=== PATIENT | female | born 1985 | race Caucasian/White ===

== ENCOUNTER 2017-07-25 04:57 | Emergency (ER) | payer OTHER ==
[2017-07-25 05:52] VITALS: BP 137/78; PULSE 97; TEMP 98.1; BMI 50.2
--- NOTE | 2017-07-25 06:08 | PDOC ---
History of Present Illness - General History Source: Patient Exam Limitations: No Limitations - History of Present Illness Initial Comments: 07/25/17 06:22 The patient is a 31 year old female with a significant PMH of depression and anxiety who presents to the emergency department with 2 days of cough and 1 day of chest pain. The patient describes her cough as productive of green sputum. After becoming concerned for her cough, the patient reports visiting an Urgent Care and being treated with Prednisone in nebulizer form, and was prescribed Albuterol and an unnamed steroid. The patient reports taking the steroid 2 hours after receiving nebulizer treatment at the Urgent Care center, and reports developing shortness of breath and chest pain shortly after. She describes the chest pain as pressure like heaviness behind the sternal area, with no radiation. She now reports a slight headache with her cough. The patient is currently not on any medications for her anxiety or depression. The patient reports being prescribed Azithromycin and beginning her course yesterday. The patient denies dizziness. Denies fever, chills, nausea, vomit, diarrhea and constipation. Denies dysuria, frequency, urgency and hematuria Allergies: Levofloxacin. Penicillins. Past surgical history: None reported. Social history: Current everyday smoker. No reported alcohol or drug use. PCP: Not on Staff. <Sarkis Cole - Last Filed: 07/25/17 06:23> - General History Source: Patient <SamuelEthan valiente - Last Filed: 07/29/17 20:07> - General Chief Complaint: Chest Pain Stated Complaint: CHEST PAIN Time Seen by Provider: 07/25/17 05:37 Past History <Sarkis Cole - Last Filed: 07/25/17 06:23> - Past Medical History Asthma: Yes Thyroid Disease: (HERNIATED DISCS) - Reproductive History (#): 1 Para: 1 - Immunization History Immunization Up to Date: Yes - Suicide/Smoking/Psychosocial Hx Smoking Status: Yes Smoking History: Current every day smoker Have you smoked in the past 12 months: Yes Number of Cigarettes Smoked Daily: 7 Cigars Per Day: 0 Information on smoking cessation initiated: No 'Breaking Loose' booklet given: 10/03/13 Hx Alcohol Use: No Drug/Substance Use Hx: No Substance Use Type: None <Ethan Treviño - Last Filed: 07/29/17 20:07> - Past Medical History Allergies/Adverse Reactions: Allergies Allergy/AdvReac Type Severity Reaction Status Date / Time levofloxacin [From Levaquin] Allergy Verified 02/14/15 04:58 Penicillins Allergy Verified 07/25/17 05:52 shellfish derived Allergy Verified 02/14/15 04:58 Home Medications: Ambulatory Orders NK [No Known Home Medication] 07/25/17 Review of Systems - Review of Systems Able to Perform ROS?: Yes Comments:: 07/25/17 06:22 CONSTITUTIONAL: Absent: fever, chills, diaphoresis, generalized weakness, malaise, loss of appetite HEENT: Absent: rhinorrhea, nasal congestion, throat pain, throat swelling, difficulty swallowing, mouth swelling, ear pain, eye pain, visual Changes CARDIOVASCULAR: (+) Sternal chest pain. Absent: syncope, palpitations, irregular heart rate, lightheadedness, peripheral edema RESPIRATORY: (+) Shortness of breath. (+) Productive cough (green sputum). Absent: dyspnea with exertion, orthopnea, wheezing, stridor, hemoptysis GASTROINTESTINAL: Absent: abdominal pain, abdominal distension, nausea, vomiting, diarrhea, constipation, melena, hematochezia GENITOURINARY: Absent: dysuria, frequency, urgency, hesitancy, hematuria, flank pain, genital pain MUSCULOSKELETAL: Absent: myalgia, arthralgia, joint swelling SKIN: Absent: rash, itching, pallor HEMATOLOGIC/IMMUNOLOGIC: Absent: easy bleeding, easy bruising, lymphadenopathy, frequent infections ENDOCRINE: Absent: unexplained weight gain, unexplained weight loss, heat intolerance, cold intolerance NEUROLOGIC: (+) Headache Absent: focal weakness or paresthesias, dizziness, unsteady gait, seizure, mental status changes, bladder or bowel incontinence PSYCHIATRIC: Absent: anxiety, depression, suicidal or homicidal ideation, hallucinations. <Sarkis Cole - Last Filed: 07/25/17 06:23> *Physical Exam - Vital Signs Last Vital Signs Temp Pulse Resp BP Pulse Ox 98.1 F 97 H 20 137/78 96 07/25/17 05:44 07/25/17 05:44 07/25/17 05:44 07/25/17 05:44 07/25/17 05:44 - Physical Exam Comments: 07/25/17 06:23 GENERAL: Well developed, well nourished. Awake and alert. No acute distress. HEENT: Normocephalic, atraumatic. PERRLA, EOMI. No conjunctival pallor. Sclera are non- icteric. Moist mucous membranes. Oropharynx is clear. NECK: Supple. Full ROM. No JVD. Carotid pulses 2+ and symmetric, without bruits. No thyromegaly. No lymphadenopathy. CARDIOVASCULAR: Regular rate and rhythm. No murmurs, rubs, or gallops. Distal pulses are 2+ and symmetric. PULMONARY: (+) Coarse bilateral wheezing. No evidence of respiratory distress. No rales or rhonchi. ABDOMINAL: Soft. Non-tender. Non-distended. No rebound or guarding. No organomegaly. Normoactive bowel sounds. MUSCULOSKELETAL Normal range of motion at all joints. No bony deformities or tenderness. No CVA tenderness. EXTREMITIES: No cyanosis. No clubbing. No edema. No calf tenderness. SKIN: Warm and dry. Normal capillary refill. No rashes. No jaundice. NEUROLOGICAL: Alert, awake, appropriate. Cranial nerves 2-12 intact. No deficits to light touch and temperature in face, upper extremities and lower extremities. No motor deficits in the in face, upper extremities and lower extremities. Normoreflexic in the upper and lower extremities. Normal speech. Toes are downgoing bilaterally. Gait is normal without ataxia. PSYCHIATRIC: Cooperative. Good eye contact. Appropriate mood and affect. <Sarkis Cole - Last Filed: 07/25/17 06:23> - Vital Signs Last Vital Signs Temp Pulse Resp BP Pulse Ox 98.1 F 97 H 20 137/78 96 07/25/17 05:44 07/25/17 05:44 07/25/17 05:44 07/25/17 05:44 07/25/17 05:44 <Ethan Treviño - Last Filed: 07/29/17 20:07> Heart Score/ECG Review #1 07/25/17 06:23 Vent rate 95 bpm Normal sinus rhythm Normal ECG <Sarkis Cole - Last Filed: 07/25/17 06:23> ED Treatment Course - LABORATORY CBC & Chemistry Diagram: 07/25/17 06:30 07/25/17 06:14 <Ethan Treviño - Last Filed: 07/29/17 20:07> Medical Decision Making - Medical Decision Making 07/29/17 20:07 Dr. Treviño: The scribe's documentation has been prepared under my direction and personally reviewed by me in its entirery. I confirm that the note above accurately reflects all work, treatment, procedures, and medical decision making performed by me. <Ethan Treviño - Last Filed: 07/29/17 20:07> *DC/Admit/Observation/Transfer - Attestations Scribe Attestion: 07/25/17 06:23 Documentation prepared by Sarkis Cole, acting as medical technologist microbiology for Ethan Treviño DO. <Sarkis Cole - Last Filed: 07/25/17 06:23> - Discharge Dispostion Admit: No <Ethan Treviño - Last Filed: 07/29/17 20:07> Diagnosis at time of Disposition: Bronchitis Asthma Qualifiers: Asthma severity: mild Asthma persistence: intermittent Asthma complication type : with acute exacerbation Qualified Code(s): J45.21 - Mild intermittent asthma with (acute) exacerbation - Discharge Dispostion Disposition: HOME Condition at time of disposition: Improved - Referrals Referrals: [facility] [place] [facility] [place] [Provider Group] - Patient Instructions Printed Discharge Instructions: DI for Asthma -- Adult, DI for Acute Bronchitis , DI for Atypical Chest Pain Additional Instructions: Return to the emergency department immediately with ANY new, persistent or worsening symptoms. Take the antibiotics and steroids as prescribed You MUST call and follow up with your doctor in 2-3 days for further evaluation of your symptoms. Results were discussed with you. Please make sure your doctor reviews the results of your emergency evaluation. Print Language: CROATIAN - Post Discharge Activity Forms/Work/School Notes: Back to Work
[2017-07-25] MEDS ORDERED: MAGNESIUM SULF 50% (8.12 MEQ/2 ML-1 GM VIAL) IVPB ONE (06:14)
[2017-07-25] MEDS ORDERED: methylPREDNISolone NA SUCC 125 MG/2 ML VIAL IVPB ONE (06:14)
[2017-07-25] MEDS ORDERED: ALBUTEROL SO4 2.5/IPRATROPIUM 0.5 INH SOL 3 ML VIAL.NEB. NEB STA ×2 (06:14→06:15)
[2017-07-25] MEDS ORDERED: MAGNESIUM SULF 50% (8.12 MEQ/2 ML-1 GM VIAL) ONE (06:41)
[2017-07-25 06:52] LABS: BASOPHIL 0.6 % (0-2.0); EOSINOPHIL 1.3 % (0-4.5); MCH 31.1 pg (25.7-33.7); MCHC 34.4 g/dl (32.0-36.0); MEAN CELL VOLUME 90.3 fl (80-96); MEAN PLT VOLUME 9.7 fl (7.5-11.1); NEUTROPHILS 70.8 % (42.8-82.8); PLATELET COUNT 237 K/MM3 (134-434); WHITE BLOOD COUNT 10.9 K/mm3 (4.0-10.0)
[2017-07-25 06:54] LABS: URINE APPEARANCE SLCLOUDY; URINE BILIRUBIN NEGATIVE (NEGATIVE); URINE BLOOD 2+ (NEGATIVE); URINE COLOR YELLOW; URINE GLUCOSE (UA) NEGATIVE (NEGATIVE); URINE KETONE NEGATIVE (NEGATIVE); URINE NITRITE NEGATIVE (NEGATIVE); URINE PROTEIN NEGATIVE (NEGATIVE); URINE UROBILINOGEN NEGATIVE mg/dL (0.2-1.0)
[2017-07-25 07:01] LABS: URINE HYALINE CAST 1 /lpf; URINE MUCUS RARE
[2017-07-25 07:05] LABS: INR 1.03 (0.82-1.09); PROTHROMBIN TIME (PATIENT) 11.6 SEC (9.98-11.88)
[2017-07-25 07:10] LABS: URINE BACTERIA MANY /hpf (NONE SEEN); URINE RBC 5 /hpf (0-3)
[2017-07-25 07:15] LABS: ALBUMIN 3.7 g/dl (3.4-5.0); ANION GAP 10 (8-16); BILIRUBIN,TOTAL 0.3 mg/dL (0.2-1.0); CALCIUM 8.9 mg/dL (8.5-10.1); CO2 27 mmol/L (21-32); CREATININE 0.7 mg/dL (0.55-1.02); GLUCOSE,RANDOM 112 mg/dL (74-106); SGOT/AST 13 U/L (15-37); SGPT/ALT 22 U/L (12-78); TOT PROT 7.7 g/dl (6.4-8.2)
[2017-07-25 07:18] LABS: ALK PHOS 73 U/L (45-117); CPK 189 IU/L (26-192); TROPONIN I < 0.02 ng/ml (0.00-0.05)
--- NOTE | 2017-07-25 09:27 | PDOC ---
*Physical Exam - Vital Signs Last Vital Signs Temp Pulse Resp BP Pulse Ox 98.1 F 97 H 20 137/78 96 07/25/17 05:44 07/25/17 05:44 07/25/17 05:44 07/25/17 05:44 07/25/17 05:44 ED Treatment Course - LABORATORY CBC & Chemistry Diagram: 07/25/17 06:30 07/25/17 06:14 - ADDITIONAL ORDERS Additional order review: Laboratory Results 07/25/17 07/25/17 07/25/17 07:33 06:30 06:30 PT with INR 11.60 INR 1.03 Sodium Potassium Chloride Carbon Dioxide Anion Gap BUN Creatinine Creat Clearance w eGFR Random Glucose Calcium Total Bilirubin AST ALT Alkaline Phosphatase Creatine Kinase Creatine Kinase Index CK-MB (CK-2) Troponin I Total Protein Albumin Serum , Qual Negative Urine Color Yellow Urine Appearance Slcloudy Urine pH 5.0 Urine Protein Negative Urine Glucose (UA) Negative Urine Ketones Negative Urine Blood 2+ H Urine Nitrite Negative Urine Bilirubin Negative Urine Urobilinogen Negative Urine RBC 5 Ur Epithelial Cells Rare Urine Bacteria Many Hyaline Casts 1 Urine Mucus Rare Urine HCG, Qual Negative 07/25/17 06:14 PT with INR INR Sodium 143 Potassium 3.7 Chloride 106 Carbon Dioxide 27 Anion Gap 10 BUN 13 Creatinine 0.7 D Creat Clearance w eGFR > 60 Random Glucose 112 H D Calcium 8.9 Total Bilirubin 0.3 D AST 13 L ALT 22 Alkaline Phosphatase 73 D Creatine Kinase 189 Creatine Kinase Index 0.9 CK-MB (CK-2) 1.826 Troponin I < 0.02 Total Protein 7.7 Albumin 3.7 Serum , Qual Urine Color Urine Appearance Urine pH Urine Protein Urine Glucose (UA) Urine Ketones Urine Blood Urine Nitrite Urine Bilirubin Urine Urobilinogen Urine RBC Ur Epithelial Cells Urine Bacteria Hyaline Casts Urine Mucus Urine HCG, Qual 07/25/17 06:30 RBC 4.41 MCV 90.3 MCHC 34.4 RDW 14.0 MPV 9.7 D Neutrophils % 70.8 Lymphocytes % 18.1 D Monocytes % 9.2 Eosinophils % 1.3 Basophils % 0.6 - RADIOLOGY Radiology Studies Ordered: Category Date Time Status CHEST PA & LAT [RAD] Stat Radiology 07/25/17 07:17 Completed - Medications Given in the ED: ED Medications Discontinued Medications Generic Name Dose Route Start Last Admin Trade Name Freq PRN Reason Stop Dose Admin Albuterol/Ipratropium 1 amp 07/25/17 06:14 07/25/17 07:05 Duoneb - NEB 07/25/17 06:15 1 amp ONCE STA Administration Albuterol/Ipratropium 1 amp 07/25/17 06:15 07/25/17 07:31 Duoneb - NEB 07/25/17 06:16 1 amp ONCE STA Administration Magnesium Sulfate 2 gm 07/25/17 06:14 07/25/17 07:31 Magnesium Sulfate IVPB 07/25/17 06:15 2 gm ONCE ONE Administration Methylprednisolone Sodium Succinate 125 mg 07/25/17 06:14 07/25/17 07:05 Solu-Medrol - IVPB 07/25/17 06:15 125 mg ONCE ONE Administration Medical Decision Making - Medical Decision Making 07/25/17 09:22 31y F hx of [facility] presents with chest tightness, cough productive of greenish sputum for 3 days, was seen in urgent care yesterday and given steroids, azithromycin, albuterol. Pt developed further tightness last night and came to [facility] for evalution. Pt received nebs, mag feeling significantly better. her labs were erviewed. UA showes bacteria but pt is asymotomatic, suspect may be due to contamination but as she is asypmtomatic will defer treatment. pt currently breathing normally, mild wheezing on ascultation but no signs of costal retractions or other signs of respiratory distress pt ambulating in the ED w/o distress requesting to go home will refer pt to fu with her PMD return precuations were discused I discussed the physical exam findings, ancillary test results and final diagnoses with the patient. I answered all of the patient's questions. The patient was satisfied with the care received and felt comfortable with the discharge plan and treatment plan. The patient will call their primary care physician within 24 hours to arrange follow-up and will return to the Emergency Department with any new, persistent or worsening symptoms. *DC/Admit/Observation/Transfer Diagnosis at time of Disposition: Bronchitis Asthma Qualifiers: Asthma severity: mild Asthma persistence: intermittent Asthma complication type : with acute exacerbation Qualified Code(s): J45.21 - Mild intermittent asthma with (acute) exacerbation - Discharge Dispostion Disposition: HOME Condition at time of disposition: Improved Admit: No - Referrals Referrals: [facility] [place] [facility] [Provider Group] - Patient Instructions Printed Discharge Instructions: DI for Atypical Chest Pain, DI for Acute Bronchitis, DI for Asthma -- Adult Additional Instructions: Return to the emergency department immediately with ANY new, persistent or worsening symptoms. Take the antibiotics and steroids as prescribed You MUST call and follow up with your doctor in 2-3 days for further evaluation of your symptoms. Results were discussed with you. Please make sure your doctor reviews the results of your emergency evaluation. Print Language: MALTESE - Post Discharge Activity Forms/Work/School Notes: Back to Work
--- NOTE | 2017-07-25 10:02 | EKG ---
Test Reason : Blood Pressure : / mmHG Vent. Rate : 095 BPM Atrial Rate : 095 BPM P-R Int : 140 ms QRS Dur : 092 ms QT Int : 374 ms P-R-T Axes : 033 025 040 degrees QTc Int : 469 ms NORMAL SINUS RHYTHM NORMAL ECG WHEN COMPARED WITH ECG OF 14-FEB-2015 06:09, NO SIGNIFICANT CHANGE WAS FOUND Confirmed by DOC JIM MD ([id number]) on 07/25/2017 10:02:15 AM Referred By: Confirmed By:DOC JIM MD
[2017-07-25 15:36] LABS: URINE WBC 33 /hpf (3-5)
[2017-07-25 16:58] LABS: URINE LEUK ESTERASE 1+ (NEGATIVE)
== END 2017-07-25 09:53 | disposition home or self-care (01) ==
LOC: JER 04:57
PROC: 3E0F7GC Introduction of Other Therapeutic Substance into Respiratory Tract, Via Natural or Artificial Opening (ICD-10-PCS; principal; 2017-07-25)
PROC: 3E0F7GC Introduction of Other Therapeutic Substance into Respiratory Tract, Via Natural or Artificial Opening (ICD-10-PCS; 2017-07-25)
PROC: 3E0333Z Introduction of Anti-inflammatory into Peripheral Vein, Percutaneous Approach (ICD-10-PCS; 2017-07-25)
PROC: 3E033GC Introduction of Other Therapeutic Substance into Peripheral Vein, Percutaneous Approach (ICD-10-PCS; 2017-07-25)
DX: J45.21 Mild intermittent asthma with (acute) exacerbation (principal); J40 Bronchitis, not specified as acute or chronic
CPT/HCPCS: 36415; 71020-TC; 80053; 81003; 81015; 82550; 82553; 84484; 84703; 85025; 85610; 93005; 93010; 94640; 96374; 96375; 99283-25

== ENCOUNTER 2018-08-05 21:39 | Emergency (ER) | payer OTHER ==
[2018-08-05 21:45] VITALS: TEMP 98.7; BMI 49.9
[2018-08-05 23:19] LABS: ANION GAP 8 MMOL/L (8-16); BLOOD UREA NITROGEN 15 mg/dL (7-18); CALCIUM 9.3 mg/dL (8.5-10.1); CHLORIDE 105 mmol/L (98-107); CO2 30 mmol/L (21-32); CREATININE 0.9 mg/dL (0.55-1.3); GLUCOSE,RANDOM 123 mg/dL (74-106); POTASSIUM 3.7 mmol/L (3.5-5.1); SODIUM 143 mmol/L (136-145)
[2018-08-05 23:40] LABS: BASO % 0.8 % (0-2.0); EOS % 2.1 % (0-4.5); HEMATOCRIT 40.4 % (32.4-45.2); HEMOGLOBIN 13.6 GM/dL (10.7-15.3); LYMPH % 24.1 % (8-40); MCH 30.7 pg (25.7-33.7); MCHC 33.7 g/dl (32.0-36.0); MEAN PLT VOLUME 10.6 fl (7.5-11.1); MONO % 5.7 % (3.8-10.2); NEUT % 67.3 % (42.8-82.8); PLATELET COUNT 218 K/MM3 (134-434); RBC 4.44 M/mm3 (3.60-5.2); RDW 14.1 % (11.6-15.6); WHITE BLOOD COUNT 12.3 K/mm3 (4.0-10.0)
--- NOTE | 2018-08-06 00:42 | PDOC ---
History of Present Illness - General Chief Complaint: Palpitations Stated Complaint: PALPITATIONS Time Seen by Provider: 08/05/18 22:10 History Source: Patient Exam Limitations: No Limitations - History of Present Illness Initial Comments: 32 y/o F hx pituitary microadenoma, asthma, anxiety presented with concerns about elevated BP. States she went to her PCP today for visit and her BP was 150 /80; her PCP decided to start her on HTN medications which were sent to the pharmacy. Patient states at home, she grew anxious and started to feel a bit flushed along with mild ALVARADO, shaking, palpitations and mild SOB. States she grew stressed after learning about her high blood pressure and has also been stressed about her job. States symptoms felt like an anxiety attack. Currently does not take any meds for anxiety. She smokes 7-10 cigs/daily. Denies fever, chills, CP, abd pain, n/v, dizziness, LOC, numbness, weakness of extremities, drug or alcohol use, recent travel, use of OCPs. 08/06/18 00:36 Past History - Past Medical History Allergies/Adverse Reactions: Allergies Allergy/AdvReac Type Severity Reaction Status Date / Time levofloxacin [From Levaquin] Allergy Verified 08/05/18 21:45 Penicillins Allergy Verified 08/05/18 21:45 shellfish derived Allergy Verified 08/05/18 21:45 Home Medications: Ambulatory Orders Albuterol 0.083% Nebulizer Sonya [Ventolin 0.083%] 1 neb NEB Q4H PRN 08/05/18 Albuterol Sulfate Inhaler - [Ventolin Hfa Inhaler -] 2 inh PO Q4H PRN 08/05/18 Asthma: Yes Cancer: Yes (PITUITARY TUMOR) COPD: No Thyroid Disease: (HERNIATED DISCS) Other medical history: Anxiety - Surgical History Cholecystectomy: Yes - Reproductive History (#): 1 Para: 1 - Immunization History Immunization Up to Date: Yes - Suicide/Smoking/Psychosocial Hx Smoking Status: Yes Smoking History: Current every day smoker Have you smoked in the past 12 months: Yes Number of Cigarettes Smoked Daily: 2 Cigars Per Day: 0 Information on smoking cessation initiated: No 'Breaking Loose' booklet given: 10/03/13 Hx Alcohol Use: No Drug/Substance Use Hx: No Substance Use Type: None Review of Systems - Review of Systems Comments:: See HPI 08/06/18 00:42 *Physical Exam - Vital Signs Last Vital Signs Temp Pulse Resp BP Pulse Ox 98.7 F 91 H 18 159/101 H 98 08/05/18 21:41 08/05/18 22:17 08/05/18 22:17 08/05/18 22:17 08/05/18 22:17 - Physical Exam General Appearance: Yes: Nourished. No: Apparent Distress HEENT: positive: DULCE Neck: positive: Supple Respiratory/Chest: positive: Lungs Clear, Normal Breath Sounds. negative: Respiratory Distress, Labored Respiration, Crackles, Rales, Rhonchi, Wheezing Cardiovascular: positive: Regular Rhythm, Regular Rate, S1, S2. negative: Murmur Gastrointestinal/Abdominal: positive: Normal Bowel Sounds, Soft. negative: Tender, Distended, Guarding, Rebound Extremity: positive: Normal Inspection. 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 negative: Confused, Disoriented, Depressed Affect Heart Score/ECG Review - History History: Slightly suspicious - Electrocardiogram EKG: Normal - Age Age: </= 45 - Risk Factors Risk Factors Heart Score: Yes Hx Hypertension, Yes Smoking History Based on the list above the patient has:: 1-2 risk factors - Troponin Troponin: </= normal limit - Score Heart Score - Total: 1 #1 General ECG Interpretation: Sinus Rhythm, Normal Rate, Normal Intervals, No acute ischemic changes No changes compared to old EKG 08/06/18 00:44 ED Treatment Course - LABORATORY CBC & Chemistry Diagram: 08/05/18 22:40 08/05/18 22:40 - ADDITIONAL ORDERS Additional order review: Laboratory Results 08/05/18 08/05/18 22:40 22:20 Sodium 143 Potassium 3.7 Chloride 105 Carbon Dioxide 30 Anion Gap 8 BUN 15 Creatinine 0.9 Creat Clearance w eGFR > 60 Random Glucose 123 H Calcium 9.3 Troponin I < 0.02 Serum , Qual Negative 08/05/18 22:40 RBC 4.44 MCV 91.0 MCHC 33.7 RDW 14.1 MPV 10.6 Neutrophils % 67.3 Lymphocytes % 24.1 Monocytes % 5.7 Eosinophils % 2.1 Basophils % 0.8 Medical Decision Making - Medical Decision Making 32 y/o F presenting with likely anxiety symptoms. EKG nonischemic. Labs unremarkable; trop neg x1. Patient heart score of 1 and low risk of ACS. Also unlikely PE given PERC negative. Unlikely related to drug use given patient does not use drugs. Patient's initial BP in triage was 188/102 and was 159/101 on repeat without intervention. Currently she is calm and asymptomatic. Discussed with patient tips on managing HTN and recommended cessation of smoking. Patient understands. Stable for d/c with PCP follow-up. 08/06/18 00:44 *DC/Admit/Observation/Transfer Diagnosis at time of Disposition: Anxiety - Discharge Dispostion Disposition: HOME Condition at time of disposition: Good Decision to Admit order: No - Referrals Referrals: Mikhail Ramirez [Primary Care Provider] - 1 week - Patient Instructions Printed Discharge Instructions: Anxiety Disorders, Essential Hypertension Additional Instructions: Thank you for choosing [facility]. It was a pleasure taking care of you. Your symptoms were likely due to anxiety. Recommend cessation of smoking (try nicotine patch to see if it helps) Be sure to take your blood pressure medications as prescribed Monitor your blood pressure at home daily. Return to the Emergency Department if your symptoms worsen or persist, you have fever, shortness of breath, chest pain, severe abdominal pain, vomiting, dizziness, weakness of extremities (arms and/or legs), changes in vision or walking or other concerning symptoms. - Post Discharge Activity
[2018-08-06 00:56] VITALS: BP 147/82; PULSE 87
--- NOTE | 2018-08-06 01:31 | PDOC ---
*Physical Exam - Vital Signs Last Vital Signs Temp Pulse Resp BP Pulse Ox 98.7 F 87 17 147/82 98 08/05/18 21:41 08/06/18 00:54 08/06/18 00:54 08/06/18 00:54 08/06/18 00:54 ED Treatment Course - LABORATORY CBC & Chemistry Diagram: 08/05/18 22:40 08/05/18 22:40 - ADDITIONAL ORDERS Additional order review: Laboratory Results 08/05/18 08/05/18 22:40 22:20 Sodium 143 Potassium 3.7 Chloride 105 Carbon Dioxide 30 Anion Gap 8 BUN 15 Creatinine 0.9 Creat Clearance w eGFR > 60 Random Glucose 123 H Calcium 9.3 Troponin I < 0.02 Serum , Qual Negative 08/05/18 22:40 RBC 4.44 MCV 91.0 MCHC 33.7 RDW 14.1 MPV 10.6 Neutrophils % 67.3 Lymphocytes % 24.1 Monocytes % 5.7 Eosinophils % 2.1 Basophils % 0.8 Medical Decision Making - Medical Decision Making 08/06/18 01:30 Case discussed with Angelina Boyer BP improved w/o intervention, pt currently asymptomatic ACS, PE unlikely, ekg non-ischemic dc with pcp f/u *DC/Admit/Observation/Transfer Diagnosis at time of Disposition: Anxiety - Discharge Dispostion Disposition: HOME Condition at time of disposition: Good - Referrals Referrals: Mikhail Ramirez [Primary Care Provider] - 1 week - Patient Instructions Printed Discharge Instructions: Anxiety Disorders, Essential Hypertension Additional Instructions: Thank you for choosing [facility]. It was a pleasure taking care of you. Your symptoms were likely due to anxiety. Recommend cessation of smoking (try nicotine patch to see if it helps) Be sure to take your blood pressure medications as prescribed Monitor your blood pressure at home daily. Return to the Emergency Department if your symptoms worsen or persist, you have fever, shortness of breath, chest pain, severe abdominal pain, vomiting, dizziness, weakness of extremities (arms and/or legs), changes in vision or walking or other concerning symptoms. - Post Discharge Activity
--- NOTE | 2018-08-06 11:10 | EKG ---
Test Reason : Blood Pressure : / mmHG Vent. Rate : 090 BPM Atrial Rate : 090 BPM P-R Int : 148 ms QRS Dur : 092 ms QT Int : 370 ms P-R-T Axes : 039 003 048 degrees QTc Int : 452 ms NORMAL SINUS RHYTHM NORMAL ECG WHEN COMPARED WITH ECG OF 10-MAY-2018 21:48, NO SIGNIFICANT CHANGE WAS FOUND Confirmed by PAYAL MARES MD ([id number]) on 08/06/2018 11:09:42 AM Referred By: Confirmed By:PAYAL MARES MD
== END 2018-08-06 00:56 | disposition home or self-care (01) ==
LOC: JER 21:39
DX: F41.9 Anxiety disorder, unspecified (principal); I10 Essential (primary) hypertension; J45.909 Unspecified asthma, uncomplicated; D35.2 Benign neoplasm of pituitary gland
CPT/HCPCS: 36415; 80048; 84484; 84703; 85025; 93005; 93010; 99283-25

== ENCOUNTER 2018-09-28 15:10 | Emergency (ER) | payer OTHER ==
--- NOTE | 2018-09-28 15:19 | PDOC ---
Rapid Medical Evaluation Time Seen by Provider: 09/28/18 15:18 Medical Evaluation: Allergies Allergy/AdvReac Type Severity Reaction Status Date / Time levofloxacin [From Levaquin] Allergy Verified 08/05/18 21:45 Penicillins Allergy Verified 08/05/18 21:45 shellfish derived Allergy Verified 08/05/18 21:45 09/28/18 15:18 I have performed a brief in-person evaluation of this patient. The patient presents with a chief complaint of: slipped and fell on floor twisted left thigh and knee. no head injury no dizzyness. Pertinent physical exam findings:pain with movement of left knee , ambulating with limp I have ordered the following:urine preg The patient will proceed to the ED for further evaluation. Discharge Disposition - Referrals Referrals: Mikhail Ramirez [Primary Care Provider] - - Patient Instructions - Post Discharge Activity
[2018-09-28 15:21] VITALS: BP 148/90; PULSE 83; TEMP 97.6; BMI 49.9
--- NOTE | 2018-09-28 16:03 | PDOC ---
History of Present Illness - General Chief Complaint: Injury Stated Complaint: FALL LEFT KNEE PAIN Time Seen by Provider: 09/28/18 15:18 History Source: Patient Exam Limitations: No Limitations - History of Present Illness Initial Comments: CHIEF COMPLAINT: 32 y/o afebrile female c/o left knee pain s/p slip and fall in tub. HISTORY OF PRESENT ILLNESS: The patient can walk but it hurts. She denies numbness/tingling in LEs. Vital signs on arrival are within normal limits REVIEW OF SYSTEMS: GENERAL/CONSTITUTIONAL: No fever MUSCULOSKELETAL: +left knee pain. No neck or back pain. SKIN: No rash or easy bruising. NEUROLOGIC: No headache, vertigo, loss of consciousness, or loss of sensation. PHYSICAL EXAM: VITAL_SIGNS: within normal limits GENERAL_APPEARANCE: alert, cooperative, discomfort with ambulation. Patient is limping but able to put pressure on affected leg. MENTAL_STATUS: speech clear, oriented X 3, responds appropriately to questions. NEURO: motor intact and sensory intact in injured extremity. EXTREMITIES: good pulse in injured extremity, minimal swelling to left knee. Negative lachmann's test. TTP of medial joint line of left knee. NO erythema or streaking to affected joint. No TTP of left tibial plateau. SKIN: warm, dry, good color. Past History - Past Medical History Allergies/Adverse Reactions: Allergies Allergy/AdvReac Type Severity Reaction Status Date / Time levofloxacin [From Levaquin] Allergy Verified 09/28/18 15:21 Penicillins Allergy Verified 09/28/18 15:21 shellfish derived Allergy Verified 09/28/18 15:21 Home Medications: Ambulatory Orders NK [No Known Home Medication] 09/28/18 Asthma: Yes Cancer: Yes (PITUITARY TUMOR) COPD: No HTN: Yes Thyroid Disease: (HERNIATED DISCS) - Surgical History Cholecystectomy: Yes - Reproductive History (#): 1 Para: 1 - Immunization History Immunization Up to Date: Yes - Suicide/Smoking/Psychosocial Hx Smoking Status: Yes Smoking History: Current every day smoker Have you smoked in the past 12 months: Yes Number of Cigarettes Smoked Daily: 7 Cigars Per Day: 0 Information on smoking cessation initiated: No 'Breaking Loose' booklet given: 10/03/13 Hx Alcohol Use: No Drug/Substance Use Hx: No Substance Use Type: None *Physical Exam - Vital Signs Last Vital Signs Temp Pulse Resp BP Pulse Ox 97.6 F 83 18 148/90 99 09/28/18 15:18 09/28/18 15:18 09/28/18 15:18 09/28/18 15:18 09/28/18 15:18 Moderate Sedation - Procedure Monitoring Vital Signs: Procedure Monitoring Vital Signs Temperature 97.6 F 09/28/18 15:18 Pulse Rate 83 09/28/18 15:18 Respiratory Rate 18 09/28/18 15:18 Blood Pressure 148/90 09/28/18 15:18 O2 Sat by Pulse Oximetry (%) 99 09/28/18 15:18 Medical Decision Making - Medical Decision Making A/P: 32 y/o female with left knee pain s/p slip and fall. No imaging necessary at this time as this is most likely a soft tissue injury. Plan is as follows: 1. hcg 2. Crutches 3. JUAN C bandage hcg - negative IM toradol ordered Gave patient supportive care instructions and ortho referral. The patient verbalizes understanding of all instructions, has no further questions and is awaiting discharge. *DC/Admit/Observation/Transfer Diagnosis at time of Disposition: Knee injury Qualifiers: Encounter type: initial encounter Laterality: left Qualified Code(s): S89.92XA - Unspecified injury of left lower leg, initial encounter - Discharge Dispostion Disposition: HOME Condition at time of disposition: Good - Referrals Referrals: Mikhail Ramirez [Primary Care Provider] - Tristan Pollard DO [Staff Physician] - - Patient Instructions Printed Discharge Instructions: How To Perform RICE (Rest, Ice, Compress, Elevate), DI for Knee Pain Additional Instructions: Discharge Instructions: -Use crutches and JUAN C bandage for comfort; you can put weight on your left leg -Follow RICE instructions to help with swelling -Call Dr. Pollard on Friday to schedule follow up appointment -Take 600mg of over the counter Ibuprofen every 6 hours with food for pain - Post Discharge Activity Forms/Work/School Notes: Back to Work
[2018-09-28] MEDS ORDERED: KETOROLAC TROMETHAMINE 60 MG/2 ML VIAL IM ONE (16:35)
[2018-09-28] MEDS ORDERED: KETOROLAC TROMETHAMINE 60 MG/2 ML VIAL ONE (16:37)
== END 2018-09-28 16:47 | disposition home or self-care (01) ==
LOC: JERFT 15:10
PROC: 3E0233Z Introduction of Anti-inflammatory into Muscle, Percutaneous Approach (ICD-10-PCS; principal; 2018-09-28)
DX: S89.82XA Other specified injuries of left lower leg, initial encounter (principal); W18.2XXA Fall in (into) shower or empty bathtub, initial encounter; Y93.E1 Activity, personal bathing and showering; Y92.031 Bathroom in apartment as the place of occurrence of the external cause; Y99.8 Other external cause status
CPT/HCPCS: 84703; 96372; 99281-25

== ENCOUNTER 2018-12-23 21:39 | Emergency (ER) | payer OTHER ==
[2018-12-23 21:49] VITALS: BP 194/119; PULSE 90; TEMP 98.1; BMI 50.4
--- NOTE | 2018-12-23 21:49 | PDOC ---
Rapid Medical Evaluation Time Seen by Provider: 12/23/18 21:46 Medical Evaluation: Allergies Allergy/AdvReac Type Severity Reaction Status Date / Time levofloxacin [From Levaquin] Allergy Verified 09/28/18 15:21 Penicillins Allergy Verified 09/28/18 15:21 shellfish derived Allergy Verified 09/28/18 15:21 12/23/18 21:46 Pt presents to the ED for evaluation of palpitations, and shortness of breath for one hour Exam NAD, lungs CTAB Orders: labs, EKG Pt to proceed to the Ed for further evaluation Discharge Disposition - Diagnosis Palpitations - Referrals - Patient Instructions - Post Discharge Activity
[2018-12-23 22:11] LABS: EOS % 1.9 % (0-4.5); HEMATOCRIT 43.1 % (32.4-45.2); HEMOGLOBIN 14.2 GM/dL (10.7-15.3); LYMPH % 19.9 % (8-40); MCH 30.2 pg (25.7-33.7); MEAN CELL VOLUME 91.6 fl (80-96); MONO % 5.9 % (3.8-10.2); NEUT % 71.3 % (42.8-82.8); PLATELET COUNT 210 K/MM3 (134-434); RBC 4.71 M/mm3 (3.60-5.2); RDW 14.5 % (11.6-15.6); WHITE BLOOD COUNT 15.1 K/mm3 (4.0-10.0)
[2018-12-23 22:22] LABS: EPI CELLS 2.7 /HPF (0-5); HCG,QUALITATIVE URINE Negative; HYALINE CASTS 1 /hpf (0-8); PH,URINE 6.5 (5.0-8.0); URINE APPEARANCE CLEAR; URINE BACTERIA 104.7 /hpf (NEGATIVE); URINE BILIRUBIN NEGATIVE (NEGATIVE); URINE COLOR YELLOW; URINE GLUCOSE (UA) NEGATIVE (NEGATIVE); URINE KETONE NEGATIVE (NEGATIVE); URINE LEUK ESTERASE NEGATIVE (NEGATIVE); URINE NITRITE NEGATIVE (NEGATIVE); URINE PROTEIN 3+ (NEGATIVE); URINE RBC 29 /hpf (0-4); URINE UROBILINOGEN 0.2 mg/dL (0.2-1.0); URINE WBC 3 /hpf (0-5)
[2018-12-23 23:14] LABS: ALBUMIN 3.6 g/dl (3.4-5.0); ALK PHOS 90 U/L (45-117); ANION GAP 10 MMOL/L (8-16); BILIRUBIN,TOTAL 0.2 mg/dL (0.2-1); BLOOD UREA NITROGEN 13 mg/dL (7-18); CALCIUM 8.9 mg/dL (8.5-10.1); CHLORIDE 107 mmol/L (98-107); CO2 25 mmol/L (21-32); CREATININE 0.7 mg/dL (0.55-1.3); GLUCOSE,RANDOM 97 mg/dL (74-106); POTASSIUM 3.9 mmol/L (3.5-5.1); SGOT/AST 24 U/L (15-37); SGPT/ALT 21 U/L (13-61); SODIUM 142 mmol/L (136-145); TOT PROT 7.6 g/dl (6.4-8.2)
--- NOTE | 2018-12-24 00:23 | PDOC ---
History of Present Illness - General Chief Complaint: Blood Pressure Problem Stated Complaint: HIGH B/P SHORTNESS OF BREATH. PALPITATIONS Time Seen by Provider: 12/23/18 21:46 History Source: Patient Exam Limitations: No Limitations - History of Present Illness Initial Comments: 12/24/18 00:20 HISTORY OF PRESENT ILLNESS: This is a 33-year-old woman past medical history of hypertension and "pituitary tumor" who is noncompliant with her medications presents emergency department for evaluation of increased blood pressure, 5/10 global headache and brief episode of "fluttering" in her chest. Patient reports status post a take a medicine for her blood pressure that starts with an L presents unsure of the name or dosage. She reports having a mild cough been productive with yellow sputum. She denies fevers, chills, shortness of breath. No recent travel or sick contacts. PAST MEDICAL HISTORY: see HPI SURGICAL HISTORY: Denies ALLERGIES: Levaquin, penicillin, shellfish REVIEW OF SYSTEMS General/Constitutional: Denies fever or chills. Denies weakness, weight change. HEENT: Denies change in vision. Denies ear pain or discharge. Denies sore throat. Cardiovascular:see HPI Respiratory: see HPI Gastrointestinal: Denies nausea, vomiting, diarrhea or constipation. Denies rectal bleeding. Genitourinary: Denies dysuria, frequency, or change in urination. Musculoskeletal: Denies joint or muscle swelling or pain. Denies neck or back pain. Skin and breasts: Denies rash or easy bruising. Neurologic: see HPI Psychiatric: Denies depression or anxiety. Endocrine: Denies increased thirst. Denies abnormal weight change. Hematologic/Lymphatic: Denies anemia, easy bleeding, or history of blood clots. Allergic/Immunologic: Denies hives or skin allergy. Denies latex allergy. PHYSICAL EXAM General Appearance: Well-appearing, appropriately dressed. No apparent distress , no intoxication. HEENT: EOMI, PERRLA, normal ENT inspection, normal voice, TMs normal, pharynx normal. No conjunctival pallor. No photophobia, scleral icterus. Neck: Supple. Trachea midline. No tenderness, rigidity, carotid bruit, stridor , lymphadenopathy, or thyromegaly. Respiratory/Chest: Lungs CTAB. No shortness of breath, chest tenderness, respiratory distress, accessory muscle use. No crackles, rales, rhonchi, stridor , wheezing, dullness Cardiovascular: RRR. S1, S2. No JVD, murmur, bradycardia, tachycardia. Vascular Pulses: Dorsalis-Pedis (R): 2+, Dorsalis-Pedis (L): 2+ Gastrointestinal/Abdominal: Normal bowel sounds. Abdomen soft, non-distended. No tenderness or rebound tenderness. No organomegaly, pulsatile mass, guarding, hernia, hepatomegaly, splenomegaly. Lymphatic: No adenopathy, tenderness. Musculoskeletal/Extremities: Normal inspection. FROM of all extremities, normal capillary refill. Pelvis Stable. No CVA tenderness. No tenderness to extremities, pedal edema, swelling, erythema or deformity. Integumentary: Appropriate color, dry, warm. No cyanosis, erythema, jaundice or rash Neurologic: lokie engineer II-XII intact. Fully oriented, alert. Appropriate mood/affect. Motor strength 5/5. No appreciable EOM palsy, facial droop or sensory deficit. Past History - Past Medical History Allergies/Adverse Reactions: Allergies Allergy/AdvReac Type Severity Reaction Status Date / Time levofloxacin [From Levaquin] Allergy Verified 12/23/18 21:49 Penicillins Allergy Verified 12/23/18 21:49 shellfish derived Allergy Verified 12/23/18 21:49 Home Medications: Ambulatory Orders NK [No Known Home Medication] 09/28/18 Asthma: Yes Cancer: Yes (PITUITARY TUMOR) COPD: No HTN: Yes Thyroid Disease: (HERNIATED DISCS) - Surgical History Cholecystectomy: Yes - Reproductive History (#): 1 Para: 1 - Immunization History Immunization Up to Date: Yes - Suicide/Smoking/Psychosocial Hx Smoking Status: Yes Smoking History: Never smoked Have you smoked in the past 12 months: Yes Number of Cigarettes Smoked Daily: 7 Cigars Per Day: 0 'Breaking Loose' booklet given: 10/03/13 Hx Alcohol Use: No Drug/Substance Use Hx: No Substance Use Type: None *Physical Exam - Vital Signs Last Vital Signs Temp Pulse Resp BP Pulse Ox 98.1 F 90 20 194/119 H 98 12/23/18 21:46 12/23/18 21:46 12/23/18 21:46 12/23/18 21:46 12/23/18 21:46 Heart Score/ECG Review - History History: Slightly suspicious - Electrocardiogram EKG: Normal - Age Age: </= 45 - Risk Factors Risk Factors Heart Score: Yes Hx Hypertension, Yes Smoking History Based on the list above the patient has:: 1-2 risk factors - Troponin Troponin: </= normal limit - Score Heart Score - Total: 1 - ECG Intrepretation Rhythm: Regular Rhythm - [place]: Normal ED Treatment Course - LABORATORY CBC & Chemistry Diagram: 12/23/18 22:00 12/23/18 22:00 - ADDITIONAL ORDERS Additional order review: Laboratory Results 12/23/18 12/23/18 22:10 22:00 Sodium 142 Potassium 3.9 Chloride 107 Carbon Dioxide 25 Anion Gap 10 BUN 13 Creatinine 0.7 Creat Clearance w eGFR 97.60 Random Glucose 97 Calcium 8.9 Total Bilirubin 0.2 AST 24 ALT 21 Alkaline Phosphatase 90 Creatine Kinase 245 H Creatine Kinase Index 1.3 CK-MB (CK-2) 3.4 Troponin I < 0.02 Total Protein 7.6 Albumin 3.6 Urine Color Yellow Urine Appearance Clear Urine pH 6.5 Ur Specific Elizabeth 1.015 Urine Protein 3+ H Urine Glucose (UA) Negative Urine Ketones Negative Urine Blood 2+ H Urine Nitrite Negative Urine Bilirubin Negative Urine Urobilinogen 0.2 Ur Leukocyte Esterase Negative Urine WBC (Auto) 3 Urine RBC (Auto) 29 Urine Casts (Auto) 1 U Epithel Cells (Auto) 2.7 Urine Bacteria (Auto) 104.7 Urine HCG, Qual Negative 12/23/18 22:00 RBC 4.71 MCV 91.6 MCHC 33.0 RDW 14.5 MPV 10.0 Neutrophils % 71.3 Lymphocytes % 19.9 Monocytes % 5.9 Eosinophils % 1.9 Basophils % 1.0 Medical Decision Making - Medical Decision Making 12/24/18 00:25 A/P: 32-year-old woman with chest fluttering, headache and elevated blood pressure Normal physical exam Differential diagnosis includes but not limited to ACS, anxiety, PE, medication noncompliance. Less likely PE given negative PERC score EKG labs labetalol 100 mg orally now Reassess 12/24/18 00:50 EKG is sinus rhythm with rate of 84. QTC prolongation at 484 ms. Normal axis. No T-wave inversions or ST elevations or depressions present. WBC 15,000 without a shift. Likely reactive. 12/24/18 01:46 Patient's blood pressure is currently 166/103 without intervention. Patient just received her labetalol. Currently patient denies any complaints is requesting discharge. I will discharge patient home to follow-up with her primary doctor to continue her blood pressure medication. I discussed the physical exam findings, ancillary test results and final diagnoses with the patient. I answered all of the patient's questions. The patient was satisfied with the care received and felt comfortable with the discharge plan and treatment plan. The patient will call their primary care physician within 24 hours to arrange follow-up and will return to the Emergency Department with any new, persistent or worsening symptoms. 12/24/18 19:57 *DC/Admit/Observation/Transfer Diagnosis at time of Disposition: Hypertensive urgency - Discharge Dispostion Disposition: HOME Condition at time of disposition: Fair Decision to Admit order: No - Referrals Referrals: Mikhail Ramirez [Primary Care Provider] - - Patient Instructions Printed Discharge Instructions: DI for High Blood Pressure Additional Instructions: Eat a low-salt diet. Call your primary doctor for reevaluation of your blood pressure. Make sure to take your blood pressure medication. Return to the emergency department for any chest pain, shortness of breath, headaches, blurry vision, dizziness or for any other concerns. Thank you very much for choosing us to provide your emergent health care needs. - Post Discharge Activity
[2018-12-24] MEDS ORDERED: LABETALOL HCL 100 MG TABLET (FP) PO ONE (00:25)
[2018-12-24] MEDS ORDERED: LABETALOL HCL 100 MG TABLET (FP) ONE (01:21)
--- NOTE | 2018-12-24 11:51 | EKG ---
Test Reason : Blood Pressure : / mmHG Vent. Rate : 084 BPM Atrial Rate : 084 BPM P-R Int : 130 ms QRS Dur : 092 ms QT Int : 410 ms P-R-T Axes : 016 017 053 degrees QTc Int : 484 ms NORMAL SINUS RHYTHM PROLONGED QT ABNORMAL ECG WHEN COMPARED WITH ECG OF 05-AUG-2018 21:47, NO SIGNIFICANT CHANGE WAS FOUND Confirmed by PAYAL MARES MD ([id number]) on 12/24/2018 11:51:10 AM Referred By: Confirmed By:PAYAL MARES MD
== END 2018-12-24 02:05 | disposition home or self-care (01) ==
LOC: JER 21:39
DX: I16.0 Hypertensive urgency (principal); I10 Essential (primary) hypertension; J45.909 Unspecified asthma, uncomplicated; D49.7 Neoplasm of unspecified behavior of endocrine glands and other parts of nervous system
CPT/HCPCS: 36415; 80053; 81003; 82550; 82553; 84484; 84703; 85025; 93005; 93010; 99281-25

== ENCOUNTER 2018-12-25 01:40 | Emergency (ER) | payer OTHER ==
[2018-12-25] MEDS ORDERED: LIDOCAINE VISCOUS 2% ORAL/TOP 20 ML UNIT-DOSE CUP PO ONE (02:01)
[2018-12-25] MEDS ORDERED: MAG HYDROX/AL HYDROX/SIMETH 30 ML UNIT-DOSE CUP PO ONE (02:01)
--- NOTE | 2018-12-25 02:06 | PDOC ---
History of Present Illness - General Stated Complaint: PALPATATIONS Time Seen by Provider: 12/25/18 01:49 History Source: Patient, Old Records Exam Limitations: No Limitations - History of Present Illness Initial Comments: 12/25/18 02:04 HISTORY OF PRESENT ILLNESS: This is a 33-year-old woman past medical history of hypertension and pituitary tumor who presents emergency department for evaluation of palpitations with epigastric burning and vomiting. Patient seen and evaluated in this ER last night and complete resolution of symptoms after receiving labetalol 100 mg orally. Patient followed up with her primary doctor today where she had an EKG and an echo which performed by the [employer] in the office. Patient does not have the results of the echo but the remainder of the workup was normal. She was started on Norvasc 10 mg daily and took her last dose at approximately 5:00 this evening. Later on this evening the patient began to experience of burning in her chest followed by an episode of vomiting. She is unable to identify any aggravating or alleviating factors. No recent travel or sick contacts. PAST MEDICAL HISTORY: see HPI SURGICAL HISTORY: Denies ALLERGIES: Levaquin, penicillin, shellfish REVIEW OF SYSTEMS General/Constitutional: Denies fever or chills. Denies weakness, weight change. HEENT: Denies change in vision. Denies ear pain or discharge. Denies sore throat. Cardiovascular:see HPI Respiratory: see HPI Gastrointestinal: Denies nausea, vomiting, diarrhea or constipation. Denies rectal bleeding. Genitourinary: Denies dysuria, frequency, or change in urination. Musculoskeletal: Denies joint or muscle swelling or pain. Denies neck or back pain. Skin and breasts: Denies rash or easy bruising. Neurologic: see HPI Psychiatric: Denies depression or anxiety. Endocrine: Denies increased thirst. Denies abnormal weight change. Hematologic/Lymphatic: Denies anemia, easy bleeding, or history of blood clots. Allergic/Immunologic: Denies hives or skin allergy. Denies latex allergy. PHYSICAL EXAM General Appearance: Well-appearing, appropriately dressed. No apparent distress , no intoxication. HEENT: EOMI, PERRLA, normal ENT inspection, normal voice, TMs normal, pharynx normal. No conjunctival pallor. No photophobia, scleral icterus. Neck: Supple. Trachea midline. No tenderness, rigidity, carotid bruit, stridor , lymphadenopathy, or thyromegaly. Respiratory/Chest: Lungs CTAB. No shortness of breath, chest tenderness, respiratory distress, accessory muscle use. No crackles, rales, rhonchi, stridor , wheezing, dullness Cardiovascular: RRR. S1, S2. No JVD, murmur, bradycardia, tachycardia. Vascular Pulses: Dorsalis-Pedis (R): 2+, Dorsalis-Pedis (L): 2+ Gastrointestinal/Abdominal: Normal bowel sounds. Abdomen soft, non-distended. No tenderness or rebound tenderness. No organomegaly, pulsatile mass, guarding, hernia, hepatomegaly, splenomegaly. Lymphatic: No adenopathy, tenderness. Musculoskeletal/Extremities: Normal inspection. FROM of all extremities, normal capillary refill. Pelvis Stable. No CVA tenderness. No tenderness to extremities, pedal edema, swelling, erythema or deformity. Integumentary: Appropriate color, dry, warm. No cyanosis, erythema, jaundice or rash Neurologic: darkroom technician II-XII intact. Fully oriented, alert. Appropriate mood/affect. Motor strength 5/5. No appreciable EOM palsy, facial droop or sensory deficit. Past History - Past Medical History Allergies/Adverse Reactions: Allergies Allergy/AdvReac Type Severity Reaction Status Date / Time levofloxacin [From Levaquin] Allergy Verified 12/25/18 02:06 Penicillins Allergy Verified 12/25/18 02:06 shellfish derived Allergy Verified 12/25/18 02:06 Home Medications: Ambulatory Orders Amlodipine Besylate [Norvasc -] 10 mg PO DAILY 12/25/18 Asthma: Yes Cancer: Yes (PITUITARY TUMOR) COPD: No HTN: Yes Thyroid Disease: (HERNIATED DISCS) - Surgical History Cholecystectomy: Yes - Reproductive History (#): 1 Para: 1 - Immunization History Immunization Up to Date: Yes - Suicide/Smoking/Psychosocial Hx Smoking Status: Yes Smoking History: Never smoked Have you smoked in the past 12 months: Yes Number of Cigarettes Smoked Daily: 7 Cigars Per Day: 0 'Breaking Loose' booklet given: 10/03/13 Hx Alcohol Use: No Drug/Substance Use Hx: No Substance Use Type: None Heart Score/ECG Review - History History: Slightly suspicious - Electrocardiogram EKG: Normal - Age Age: </= 45 - Risk Factors Risk Factors Heart Score: Yes Hx Hypertension, Yes Hx Obesity Based on the list above the patient has:: 1-2 risk factors - Troponin Troponin: </= normal limit - Score Heart Score - Total: 1 - ECG Intrepretation Rhythm: Regular Rhythm - [place]: Normal - ECG Impressions Ischemic Changes: No ED Treatment Course - LABORATORY CBC & Chemistry Diagram: 12/25/18 02:30 12/25/18 02:30 - RADIOLOGY Radiology Studies Ordered: Category Date Time Status CHEST PA & LAT [RAD] Stat Radiology 12/25/18 02:02 Ordered Medical Decision Making - Medical Decision Making 12/25/18 02:07 A/P: 33-year-old woman with epigastric burning and vomiting today Differential diagnosis includes but is not limited to- GERD, ACS, pancreatitis, cholecystitis, pneumonia, anxiety Labs including cardiac profile and lipase EKG Urinalysis, urine culture Chest x-ray Maalox Viscous lidocaine Hydroxyzine 25 mg orally now 12/25/18 04:11 EKG sinus rhythm with rate of 89. Normal PA interval. QTC prolonged at 484 ms. Normal axis. No ST depressions, ST elevations or T-wave inversions present. No significant change from EKG performed 12/23/18. 12/25/18 05:29 Chest x-ray as read by me: Angles clear. Cardiac silhouette is within normal limits. No focal infiltrations or consolidations noted. This patient has had full palpitation workup done as an outpatient, I will discharge the patient home to follow-up with her primary doctor to get the results of her echo on Friday. High likelihood that patient's symptoms are from anxiety. I will give the patient 5 mg of Valium orally now this can follow-up with a primary doctor for more definitive anxiety treatment. I discussed the physical exam findings, ancillary test results and final diagnoses with the patient. I answered all of the patient's questions. The patient was satisfied with the care received and felt comfortable with the discharge plan and treatment plan. The patient will call their primary care physician within 24 hours to arrange follow-up and will return to the Emergency Department with any new, persistent or worsening symptoms. *DC/Admit/Observation/Transfer Diagnosis at time of Disposition: Anxiety - Discharge Dispostion Disposition: HOME Condition at time of disposition: Fair Decision to Admit order: No - Referrals Referrals: Mikhail Ramirez [Primary Care Provider] - - Patient Instructions Additional Instructions: Follow-up with her primary doctor within the next 3 days. Return to emergency department for any new or worsening symptoms. Thank you very much for choosing us to provide emergent health care needs. - Post Discharge Activity
[2018-12-25 02:08] VITALS: BP 143/84; PULSE 93; TEMP 97.6; BMI 50.4
[2018-12-25] MEDS ORDERED: hydrOXYzine HCL 25 MG TABLET (FP) PO ONE (02:09)
[2018-12-25] MEDS ORDERED: MAG HYDROX/AL HYDROX/SIMETH 30 ML UNIT-DOSE CUP ONE (02:37)
[2018-12-25] MEDS ORDERED: LIDOCAINE VISCOUS 2% ORAL/TOP 20 ML UNIT-DOSE CUP ONE (02:37)
[2018-12-25 02:52] LABS: BASO % 0.9 % (0-2.0); EOS % 2.1 % (0-4.5); HEMATOCRIT 43.4 % (32.4-45.2); HEMOGLOBIN 14.1 GM/dL (10.7-15.3); LYMPH % 20.1 % (8-40); MCHC 32.6 g/dl (32.0-36.0); MEAN CELL VOLUME 92.1 fl (80-96); MEAN PLT VOLUME 10.1 fl (7.5-11.1); MONO % 6.1 % (3.8-10.2); NEUT % 70.8 % (42.8-82.8); PLATELET COUNT 224 K/MM3 (134-434); RBC 4.71 M/mm3 (3.60-5.2); RDW 14.8 % (11.6-15.6); WHITE BLOOD COUNT 14.9 K/mm3 (4.0-10.0)
[2018-12-25 03:07] LABS: INR 1.01 (0.83-1.09); PROTHROMBIN TIME (PATIENT) 11.9 SEC (9.7-13.0)
[2018-12-25 03:23] LABS: ALBUMIN 3.8 g/dl (3.4-5.0); ALK PHOS 91 U/L (45-117); ANION GAP 9 MMOL/L (8-16); BILIRUBIN,TOTAL 0.2 mg/dL (0.2-1); BLOOD UREA NITROGEN 10 mg/dL (7-18); CALCIUM 8.8 mg/dL (8.5-10.1); CHLORIDE 105 mmol/L (98-107); CO2 29 mmol/L (21-32); CREATININE 0.7 mg/dL (0.55-1.3); GLUCOSE,RANDOM 107 mg/dL (74-106); LIPASE 113 U/L (73-393); MAGNESIUM 2.1 mg/dL (1.8-2.4); POTASSIUM 3.3 mmol/L (3.5-5.1); SGOT/AST 13 U/L (15-37); SGPT/ALT 22 U/L (13-61); SODIUM 144 mmol/L (136-145); TOT PROT 8.1 g/dl (6.4-8.2)
[2018-12-25] MEDS ORDERED: ONDANSETRON *ODT* 4 MG TABLET SL ONE (03:38)
[2018-12-25] MEDS ORDERED: ONDANSETRON *ODT* 4 MG TABLET ONE (03:38)
--- NOTE | 2018-12-25 05:16 | PDOC ---
*Physical Exam - Vital Signs Last Vital Signs Temp Pulse Resp BP Pulse Ox 97.6 F 93 H 20 143/84 100 12/25/18 02:07 12/25/18 02:07 12/25/18 02:07 12/25/18 02:07 12/25/18 02:07 ED Treatment Course - LABORATORY CBC & Chemistry Diagram: 12/25/18 02:30 12/25/18 02:30 - ADDITIONAL ORDERS Additional order review: Laboratory Results 12/25/18 12/25/18 02:30 02:30 PT with INR 11.90 INR 1.01 Sodium 144 Potassium 3.3 L Chloride 105 Carbon Dioxide 29 Anion Gap 9 BUN 10 Creatinine 0.7 Creat Clearance w eGFR 97.60 Random Glucose 107 H Calcium 8.8 Magnesium 2.1 Total Bilirubin 0.2 AST 13 L ALT 22 Alkaline Phosphatase 91 Creatine Kinase 106 Troponin I < 0.02 Total Protein 8.1 Albumin 3.8 Lipase 113 12/25/18 02:30 RBC 4.71 MCV 92.1 MCHC 32.6 RDW 14.8 MPV 10.1 Neutrophils % 70.8 Lymphocytes % 20.1 Monocytes % 6.1 Eosinophils % 2.1 Basophils % 0.9 - Medications Given in the ED: ED Medications Discontinued Medications Generic Name Dose Route Start Last Admin Trade Name Freq PRN Reason Stop Dose Admin Al Hydroxide/Mg Hydroxide 30 ml 12/25/18 02:01 12/25/18 02:54 Mylanta Oral Suspension - PO 12/25/18 02:02 30 ml ONCE ONE Administration Hydroxyzine HCl 25 mg 12/25/18 02:09 12/25/18 02:54 Atarax - PO 12/25/18 02:10 25 mg ONCE ONE Administration Lidocaine HCl 20 ml 12/25/18 02:01 12/25/18 02:54 Xylocaine 2% Viscous Oral - PO 12/25/18 02:02 20 ml ONCE ONE Administration Ondansetron HCl 4 mg 12/25/18 03:38 12/25/18 04:38 Zofran Odt - SL 12/25/18 03:39 4 mg ONCE ONE Administration Medical Decision Making - Medical Decision Making 12/25/18 05:02 Case discussed with CHANTAL Harvey Agree with assessment and plan *DC/Admit/Observation/Transfer Diagnosis at time of Disposition: Anxiety, Palpitations - Discharge Dispostion Disposition: HOME Condition at time of disposition: Fair - Referrals Referrals: Mikhail Ramirez [Primary Care Provider] - - Patient Instructions Additional Instructions: Follow-up with her primary doctor within the next 3 days. Return to emergency department for any new or worsening symptoms. Thank you very much for choosing us to provide emergent health care needs. - Post Discharge Activity
[2018-12-25] MEDS ORDERED: diazePAM 5 MG TABLET PO ONE (05:27)
[2018-12-25] MEDS ORDERED: diazePAM 5 MG TABLET ONE (05:33)
--- NOTE | 2018-12-25 10:25 | EKG ---
Test Reason : Blood Pressure : / mmHG Vent. Rate : 089 BPM Atrial Rate : 089 BPM P-R Int : 144 ms QRS Dur : 088 ms QT Int : 398 ms P-R-T Axes : 031 000 030 degrees QTc Int : 484 ms NORMAL SINUS RHYTHM MINIMAL VOLTAGE CRITERIA FOR LVH, MAY BE NORMAL VARIANT PROLONGED QT ABNORMAL ECG WHEN COMPARED WITH ECG OF 23-DEC-2018 21:58, NO SIGNIFICANT CHANGE WAS FOUND Confirmed by HERNÁN RONQUILLO, DOC ([id number]) on 12/25/2018 10:24:55 AM Referred By: Confirmed By:DOC JIM MD
== END 2018-12-25 05:50 | disposition home or self-care (01) ==
LOC: JER 01:40
DX: F41.9 Anxiety disorder, unspecified (principal)
CPT/HCPCS: 36415; 71046-TC-FY; 80053; 82550; 83690; 83735; 84484; 85025; 85610; 93005; 93010; 99285-25; Q0162

== ENCOUNTER 2019-03-16 12:07 | Emergency (ER) | payer OTHER ==
[2019-03-16 12:17] VITALS: TEMP 98.9; BMI 49.9
[2019-03-16] MEDS ORDERED: predniSONE 20 MG TABLET (UD) PO ONE ×2 (12:45→13:14)
[2019-03-16] MEDS ORDERED: FAMOTIDINE 20 MG/50 ML IVPB 20 MG/50 ML MG IVPB ONE ×2 (12:45→13:21)
[2019-03-16] MEDS ORDERED: predniSONE 20 MG TABLET (UD) ONE (13:10)
--- NOTE | 2019-03-16 13:13 | PDOC ---
History of Present Illness - General Chief Complaint: Allergic Reaction Stated Complaint: ALLERGIC REACTION Time Seen by Provider: 03/16/19 12:45 - History of Present Illness Initial Comments: The pt is a 33F w/ a history of peanut allergy, panic attacks, and HTN who presents for evaluation for concern of an allergic reaction. She reports eating sunflower seeds today (which have been fine in the past), and shortly after she noted that she was feeling left facial tingling, right tongue swelling, and mild chest tightness. She denies trouble breathing or swallowing. She has an epipen at home that she did not use and she did not take anything for her symptoms. Denies recent illness, fevers/chills, [place]VAR[place], vision changes, N/V/C/D, dysuria, hematuria, or changes in sensation 03/16/19 13:07 Past History - Past Medical History Allergies/Adverse Reactions: Allergies Allergy/AdvReac Type Severity Reaction Status Date / Time levofloxacin [From Levaquin] Allergy Verified 03/16/19 12:12 peanut Allergy Verified 03/16/19 12:12 Penicillins Allergy Verified 03/16/19 12:12 shellfish derived Allergy Verified 03/16/19 12:12 Home Medications: Ambulatory Orders Amlodipine Besylate [Norvasc -] 10 mg PO DAILY 12/25/18 Asthma: Yes Cancer: Yes (PITUITARY TUMOR) COPD: No HTN: Yes Thyroid Disease: (HERNIATED DISCS) - Surgical History Cholecystectomy: Yes - Reproductive History (#): 1 Para: 1 - Immunization History Immunization Up to Date: Yes - Suicide/Smoking/Psychosocial Hx Smoking Status: Yes Smoking History: Never smoked Have you smoked in the past 12 months: Yes Number of Cigarettes Smoked Daily: 7 Cigars Per Day: 0 Information on smoking cessation initiated: No 'Breaking Loose' booklet given: 10/03/13 Hx Alcohol Use: No Drug/Substance Use Hx: No Substance Use Type: None Review of Systems - Review of Systems Able to Perform ROS?: Yes Comments:: GENERAL/CONSTITUTIONAL: No fever or chills. No weakness HEAD, EYES, EARS, NOSE AND THROAT: No change in vision. No ear pain or discharge. No sore throat CARDIOVASCULAR: No chest pain or shortness of breath RESPIRATORY: Denies cough, hemoptysis GASTROINTESTINAL: No nausea, vomiting, diarrhea or constipation GENITOURINARY: No dysuria, frequency, or change in urination MUSCULOSKELETAL: No joint or muscle swelling or pain. No neck or back pain SKIN: No rash NEUROLOGIC: No headache, vertigo, loss of consciousness, or change in strength/ sensation ENDOCRINE: No increased thirst. No abnormal weight change HEMATOLOGIC/LYMPHATIC: No anemia, easy bleeding, or history of blood clots ALLERGIC/IMMUNOLOGIC: No hives or skin allergy 03/16/19 13:10 Is the patient limited Slovak proficient: No *Physical Exam - Vital Signs Last Vital Signs Temp Pulse Resp BP Pulse Ox 98.9 F 92 H 16 156/85 99 03/16/19 12:13 03/16/19 12:13 03/16/19 12:13 03/16/19 12:13 03/16/19 12:13 - Physical Exam Comments: GENERAL: Awake, alert, and oriented to person/place/time, in no acute distress HEAD: No signs of trauma, normocephalic, atraumatic EYES: PERRLA, EOMI, sclera anicteric, conjunctiva clear ENT: Hearing grossly normal, nares patent, oropharynx clear with mild edema without exudates. Moist mucosa LUNGS: No distress, speaks full sentences, clear to auscultation bilaterally HEART: Regular rate and rhythm, normal S1 and S2, no murmurs appreciated, peripheral pulses normal and equal bilaterally ABDOMEN: Soft, nontender, normoactive bowel sounds. No guarding, no rebound EXTREMITIES: Normal inspection, Normal range of motion, no edema. No clubbing or cyanosis NEUROLOGICAL: Cranial nerves II through XII grossly intact. Normal speech, normal gait, no focal sensorimotor deficits SKIN: Warm, Dry 03/16/19 13:10 Medical Decision Making - Medical Decision Making The pt is a 33F w/ a history of HTN and allergies to peanuts who presents for evaluation for concern of an allergic reaction 2/2 sunflower seeds Pt given Benadryl, pepcid, and prednisone Will reassess 03/16/19 13:11 Pt feels improved No symptoms Plan for D/C w/ PCP f/u Pt has epipen at home Discharge instructions and return precautions given Pt in agreement and verbalized understanding Dispo: home *DC/Admit/Observation/Transfer Diagnosis at time of Disposition: Allergic reaction Qualifiers: Encounter type: initial encounter Qualified Code(s): T78.40XA - Allergy, unspecified, initial encounter - Discharge Dispostion Disposition: HOME Condition at time of disposition: Improved Decision to Admit order: No - Referrals Referrals: Mikhail Ramirez [Primary Care Provider] - - Patient Instructions Printed Discharge Instructions: DI for General Allergic Reactions Additional Instructions: You were seen in the Emergency Department for evaluation of an allergic reaction. You were treated with Pepcid and Benadryl. Review the handout provided at discharge. Follow up with your primary care provider within a week. Return to the Emergency Department if you develop fever/chills, swelling, rash, trouble breathing or swallowing, chest tightness/pain, or any new/concerning symptoms. - Post Discharge Activity
--- NOTE | 2019-03-16 14:27 | PDOC ---
Documentation entered by Carol Springer SCRIBE, acting as scribe for Kathy Driver MD. Kathy Driver MD: This documentation has been prepared by the suzetteibe, Carol Springer SCRIBE, under my direction and personally reviewed by me in its entirety. I confirm that the documentation accurately reflects all work, treatment, procedures, and medical decision making performed by me. Attending Attestation - Resident Resident Name: Bradford Bailey - ED Attending Attestation I have performed the following: I have examined & evaluated the patient, The case was reviewed & discussed with the resident, I agree w/resident's findings & plan, Exceptions are as noted - HPI HPI: 03/16/19 14:14 The patient is a 33 year old female with a past medical history of HTN ( amlodapine 10 mg), peanut/hazelnut allergies presents to the emergency department s/p an allergic reaction. The patient reports she was eating sunflower seeds earlier today and about 5-10 minutes later, she started to have itching to the face, associated with sensation of upper lip and right sided tongue swelling and a cough. The patient denies prior allergic reaction to sunflower, she became concerned and decided to be evaluated. Denies prior anaphylactic reaction. Denies difficulty breathing. Allergies: peanut/hazelnut allergies, shellfish derived, penicillins, levofloxacin. PCP: Dr. Clarence Ramirez. - Physicial Exam PE: 03/16/19 14:15 GENERAL: The patient is in no acute distress. HEAD: Normal with no signs of trauma. EYES: PERRLA, EOMI, sclera anicteric, conjunctiva clear. ENT: +Uvula midline, no enlargement, or deviation. Ears normal, nares patent, oropharynx clear without exudates. Moist mucous membranes. NECK: Normal range of motion, supple without lymphadenopathy, JVD, or masses. LUNGS: Speech clear. Breath sounds equal, clear to auscultation bilaterally. No wheezes, and no crackles. HEART:Regular rate and rhythm, normal S1 and S2 without murmurs, rubs or gallops. ABDOMEN: Soft, nontender, normoactive bowel sounds. No guarding, no rebound. No masses palpable. EXTREMITIES: Normal range of motion, no edema. No clubbing or cyanosis. No erythema, or tenderness. NEUROLOGICAL: Cranial nerves II through XII grossly intact. Normal speech. No focal neurological deficits. MUSCULOSKELETAL: Back nontender to palpation, no CVA tenderness SKIN: +no urticarial rashes. Warm, Dry, normal turgor, no rashes or lesions noted. - Medical Decision Making 03/16/19 14:25 33-year-old female presented to emergency department with a complaint of ALLERGIC reaction. She was previously assessed by an bulk mail clerk and told that she has an ALLERGIC reaction to tree nuts, has a severe reaction to hazelnuts. Patient had some procedure today, which she previously did not have a reaction to. Presents because of itching on her face. She also noted swelling of her upper lip. Denies throat tightness, vocal changes, drooling, wheezing, diffuse urticaria. Patient had a previous bad reaction to prednisone and therefore is hesitant to take it. Patient given 40 prednisone in the emergency department and feels jittery. Patient also given Benadryl and Pepcid. Will plan to discharge to home. Patient already has EpiPen
[2019-03-16 15:22] VITALS: BP 148/78; PULSE 86
== END 2019-03-16 15:32 | disposition home or self-care (01) ==
LOC: JER 12:07
PROC: 3E033GC Introduction of Other Therapeutic Substance into Peripheral Vein, Percutaneous Approach (ICD-10-PCS; principal; 2019-03-16)
PROC: 3E033GC Introduction of Other Therapeutic Substance into Peripheral Vein, Percutaneous Approach (ICD-10-PCS; 2019-03-16)
DX: T78.40XA Allergy, unspecified, initial encounter (principal); I10 Essential (primary) hypertension; F41.0 Panic disorder [episodic paroxysmal anxiety]; Z88.0 Allergy status to penicillin; Z91.013 Allergy to seafood; Z91.010 Allergy to peanuts
CPT/HCPCS: 96365; 96375; 99282-25